=== PATIENT | female | born 1985 | race Two or more races ===

== ENCOUNTER 2020-02-09 06:45 | Emergency (ER) | payer OTHER ==
[~2020-02-09] VITALS: Ht 154.9 cm; Wt 53.1 kg
[2020-02-09 06:50] VITALS: Ht 154.9 cm; Wt 53.1 kg
[2020-02-09 07:20] VITALS: BP 107/60
[2020-02-09 07:42] LABS: BASOPHIL % 0.4 % (0-2); PLATELET COUNT 152 x10^3mcL (130-400)
[2020-02-09 07:47] LABS: ALBUMIN 4.1 g/dL (3.4-5.0); ALKALINE PHOSPHATASE 106 U/L (46-116); ALT/SGPT 11 U/L (14-59); AST/SGOT 13 U/L (15-37); BILIRUBIN TOTAL 0.51 mg/dL (0.20-1.00); CALCIUM 8.8 mg/dL (8.5-10.1); CARBON DIOXIDE 26.9 mmol/L (21-32); CHLORIDE SERUM 102 mmol/L (98-107); CREATININE SERUM 0.8 mg/dL (0.6-1.0); GFR1 > 60 mL/min; GLUCOSE SERUM 142 mg/dL (74-106); POTASSIUM SERUM 3.7 mmol/L (3.5-5.1); SODIUM SERUM 138 mmol/L (136-145); TOTAL PROTEIN, SERUM 7.7 g/dL (6.4-8.2)
[2020-02-09 08:03] LABS: microscopic required? YES; urine erythrocyte 3+ (NEGATIVE)
== END 2020-02-09 10:24 | disposition home or self-care (01) ==
LOC: ED 06:45
PROVIDERS: Emergency Medicine
DX: N39.0 Urinary tract infection, site not specified (principal); N83.201 Unspecified ovarian cyst, right side
CPT/HCPCS: J0696; J1885; J2405; J7060; Q0092